=== PATIENT | male | born 1960 | race Caucasian/White ===

== ENCOUNTER 2024-02-01 19:56 | Inpatient (IN) ==
[2024-02-01 20:18] LABS: BASOPHILS # (AUTO) 0.1 10^3/uL (0.0-0.1); BASOPHILS % (AUTO) 0.9 %; EOSINOPHILS # (AUTO) 0.2 10^3/uL (0.0-0.7); EOSINOPHILS % (AUTO) 1.8 %; HCT - HEMATOCRIT 37.5 % (42.0-52.0); HGB - HEMOGLOBIN 12.5 g/dL (14.0-18.0); LYMPHOCYTES # (AUTO) 1.5 10^3/uL (1.5-3.5); LYMPHOCYTES % (AUTO) 15.2 %; MEAN CORPUSCULAR HGB CONC 33.3 g/dL (32.0-36.0); MEAN CORPUSCULAR VOLUME 89.9 fL (80.0-94.0); MEAN PLATELET VOLUME 9.7 fL (7.4-11.4); MONOCYTES # (AUTO) 0.9 10^3/uL (0.0-1.0); NEUTROPHILS # (AUTO) 7.3 10^3/uL (1.5-6.6); NEUTROPHILS % (AUTO) 72.7 %; PLT - PLATELET COUNT 459 10^3/uL (130-450); RED BLOOD COUNT 4.17 10^6/uL (4.70-6.10); RED CELL DISTRIBUTION WIDTH 14.3 % (12.0-15.0); WHITE BLOOD COUNT 10.1 x10^3/uL (4.8-10.8)
[2024-02-01 20:34] LABS: ALBUMIN 3.9 g/dL (3.2-5.5); ALBUMIN/GLOBULIN RATIO 1.4 (1.0-2.2); BILIRUBIN,TOTAL 0.3 mg/dL (0.2-1.0); CALCIUM 8.9 mg/dL (8.5-10.3); CREATININE 0.8 mg/dL (0.6-1.3); POTASSIUM 3.8 mmol/L (3.5-4.5); TOTAL PROTEIN 6.6 g/dL (6.4-8.9)
[2024-02-01] MEDS ORDERED: iohexoL-300 100 ML VIAL ONE (21:32)
[2024-02-01 21:51] LABS: BILIRUBIN,URINE NEGATIVE (NEGATIVE); GLUCOSE, URINE (UA) NEGATIVE (NEGATIVE); KETONES,URINE (UA) NEGATIVE (NEGATIVE); LEUKOCYTE ESTERASE, URINE NEGATIVE (NEGATIVE); NITRITE,URINE NEGATIVE (NEGATIVE); OCCULT BLOOD,URINE NEGATIVE (NEGATIVE); PH,URINE 7.5 PH (5.0-7.5); PROTEIN,URINE NEGATIVE (NEGATIVE); UROBILINOGEN,URINE 0.2 (NORMAL) E.U./dL (NORMAL)
[2024-02-01 21:53] LABS: CLARITY,URINE CLEAR (CLEAR)
--- NOTE | 2024-02-01 21:55 | ED Physician Documentation ---
PD HPI ABD PAIN Stated complaint Stated Complaint: ABD PX Chief complaint Chief Complaint: Abd Pain History obtained from History obtained from: Patient History of Present Illness Timing - onset: How many weeks ago (2) Timing - duration: Weeks (2) Timing - details: Gradual onset and Still present Quality: Cramping, Sharp and Pain Location: RLQ Radiation: No Chest or Lower back Improved by: Laying still Worsened by: Position and Palpation Associated symptoms: No Fever, Nausea, Vomiting, Diarrhea or Constipation Similar symptoms before: Diagnosis (cecal colitis ) Recently seen: Emergency Dept Additional information Additional information: 63-year-old Rl Collier is a resident of [facility] and he has come to [facility] today for evaluation of right lower quadrant abdominal pain. He had pain for about 2 weeks and he was seen in the emergency department 1 week ago and diagnosed with cecal colitis. He was thought to have potentially some early appendicitis or a possible mass in the cecum. He was placed onto Augmentin and he has not had significant change in his abdominal pain. He denies any blood in his stool he denies any constipation and he has been eating. He denies a fever. An order for Mr. Collier to get to the [place] he takes a private ferry from [facility] to [place] and then drives from [place] down to [facility]. This is mostly in all day process. Review of Systems Constitutional Denies: Fever, Chills, Weakness or Diaphoresis Ears, nose, mouth, and throat Denies: Neck pain Cardiovascular Denies: Irregular heart rate, chest pain or shortness of breath with exertion Respiratory Denies: Shortness of breath or Cough Gastrointestinal Reports: Abdominal pain; Denies: Abdominal distention, Nausea, Vomiting, Diarrhea or Constipation Genitourinary Denies: Painful urination or Flank pain Musculoskeletal Denies: Back pain or Neck pain Integumentary/Breast Denies: Rash or Itching Exam Exam He is returning today for further evaluation of persistent right lower quadran t abdominal pain 63-year-old male who appears comfortable but concerned laying on the gurney. Constitutional normal general appearance, no apparent distress, average body habitus and no limitations HENMT normocephalic and head/scalp atraumatic Eyes PERRL and EOMs intact bilaterally Neck/C-Spine visual inspection normal and trachea midline Chest inspection of chest normal Respiratory breath sounds equal bilaterally, normal respiratory effort, clear to auscultation bilaterally, no wheezes, no rales and no retractions Cardiovascular normal heart rate noted, regular rhythm noted and no murmur Gastrointestinal abdomen normal to inspection The abdomen is firm with firm lower abdominal muscles and there is no obvious referred peritoneal signs from examination deeply of the abdomen and other areas. He does have specific point tenderness to the right lower quadrant without guarding or rebound tenderness. Genitourinary no CVA tenderness Extremities normal to inspection, normal to palpation, no tenderness and full ROM Neurology therapist rrt II-XII intact and GCS normal Psychiatry mental status grossly normal Skin skin color normal and no rash Results Vitals Vitals: Vital Signs - 24 hr 02/01/24 20:00 02/01/24 20:15 02/01/24 21:56 Temperature 36.4 C L Temperature Source Temporal Artery Scan Pulse Rate 81 71 Respiratory Rate 16 18 Blood Pressure 127/81 132/83 H O2 Saturation 96 98 O2 Source Room air Room air Pain Intensity 6 4 4 02/01/24 23:00 02/02/24 01:00 Temperature Temperature Source Pulse Rate 91 H 82 Respiratory Rate 18 16 Blood Pressure 122/73 127/90 O2 Saturation 98 94 O2 Source Room air Room air Pain Intensity 6 7 Oxygen O2 Source Room air Labs Labs: Laboratory Tests 02/01/24 02/01/24 20:14 21:47 WBC 10.1 RBC 4.17 L Hgb 12.5 L Hct 37.5 L MCV 89.9 MCH 30.0 MCHC 33.3 RDW 14.3 Plt Count 459 H MPV 9.7 Neut # (Auto) 7.3 H Lymph # (Auto) 1.5 [place] # (Auto) 0.9 Eos # (Auto) 0.2 Baso # (Auto) 0.1 Absolute Nucleated RBC 0.00 Nucleated RBC % 0.0 Sodium 136 Potassium 3.8 Chloride 102 Carbon Dioxide 27 Anion Gap 7.0 BUN 8 Creatinine 0.8 Estimated GFR (MDRD) 98 Glucose 115 H Calcium 8.9 Total Bilirubin 0.3 AST 13 ALT 9 L Alkaline Phosphatase 51 Total Protein 6.6 Albumin 3.9 Globulin 2.7 Albumin/Globulin Ratio 1.4 Lipase 52 Urine Color LIGHT YELLOW Urine Clarity CLEAR Urine pH 7.5 Ur Specific [place] 1.010 Urine Protein NEGATIVE Urine Glucose (UA) NEGATIVE Urine Ketones NEGATIVE Urine Occult Blood NEGATIVE Urine Nitrite NEGATIVE Urine Bilirubin NEGATIVE Urine Urobilinogen 0.2 (NORMAL) Ur Leukocyte Esterase NEGATIVE Ur Microscopic Review NOT INDICATED Urine Culture Comments NOT INDICATED Rads (name of study) CT ab/pel : Relevant Findings:: Prelim report reviewed (Impression: There is a focus of prominently inflamed fat seen along the undersurface of the cecum, measuring up to 4.1 cm. Surrounding inflammatory change, with wall thickening of the cecum and the terminal ileum. The appendix is believed to be immediately adjacent to this focus. There is a focus) and See rad report PD Medical Decision Making ED course Reviewed Lab Results: CT ab/pel: Impression: There is a focus of prominently inflamed fat seen along the undersurface of the cecum, measuring up to 4.1 cm. Surrounding inflammatory change, with wall thickening of the cecum and the terminal ileum. The appendix is believed to be immediately adjacent to this focus. There is a focus of gas seen associated with this inflamed fat, which may be related to gas within the pelvic fluid versus a small bubble of extraluminal gas. A benign process with inflamed fat is possible perforated appendicitis is also possible an inflamed and perforated cecal neoplasm is also within the differential. Surgical consultation consultation may be helpful. Please consider additional short-term follow-up CT including oral contrast. We reviewed a complete blood count showing a normal white blood cell count hemoglobin and hematocrit were depressed at 12.7 and 37.7 which is a drop from the patient's most recent done 1 week ago of 14.4 and 43.7. Platelet count is elevated at 469,000 the differential today is unremarkable and improved from 7 days ago. Electrolytes are normal kidney function is normal liver function is normal urinalysis is unremarkable I interpret these laboratory studies to indicate some blood loss over the past week. Social Determinants of Health: This 63-year-old [place] [facility] with access to the [facility] through a private ferry. He is living in a house with electricity but no running water. ED course: Rl Ortiz presents to the emergency department 1 week after being diagnosed with a cecal colitis. He did take Augmentin and he is uncertain if he had any significant improvement in his pain. He has persistence of the pain and returns to the emergency department for further evaluation. Appendicitis was on the differential earlier today it looks like there is a problem with his cecum and the exact nature of this is unclear. There is leaning toward the possibility of a cecal mass. I examined the patient and did not believe he had an acute surgical abdomen but the nature of the CT examination and the changes in the CT examination indicated the possibility of a contained perforation and the patient was admitted to the hospital for observation and the surgeon was consulted by telephone. The surgeon recommended admission to the hospital he will see the patient in the morning and I spoke with the hospitalist regarding this patient's care. The hospitalist will put the patient in the hospital and place him on antibiotics. Consults Consults: Consulted (name) (Judy), Discussed case with and Request real estate listing consultant evaluate patient [facility] Medical History Medical History (Updated 02/02/24 @ 07:47 by Lloyd Kim MD) Carpal tunnel syndrome of right wrist Cancer prostate Social History Social History Smoking Status: Current every day smoker If you are a former smoker, when did you quit? (Date/Year): 30 Second hand tobacco smoke exposure: No Patient requests smoking cessation consult: No Initiate information on smoking cessation: No Smoking Status Details: Nicotine patch Relationship: Level: Independent Do you feel safe in your home environment?: Yes Suffered physical, verbal, emotional, or financial abuse?: No History of Abuse: No Substance Use: cannabis (any form) Are you sexually active?: No POLST Patient has POLST: No Discharge Plan Discharge Patient Disposition: ED Place in Observation Clinical Impression: Right lower quadrant abdominal pain Interventions: ED Admission Assessment Last Done: 02/02/24 02:02
[2024-02-01] MEDS: iohexoL-300 100 ML VIAL IVP ONE (22:06)
--- NOTE | 2024-02-01 23:00 | CT Report ---
PROCEDURE: CT Abdomen/Pelvis W INDICATIONS: RLQ pain CONTRAST: IV 100 ML OMNI 300 TECHNIQUE: After the administration of intravenous contrast, a CT scan of the abdomen and pelvis was performed. Images were recorded and evaluated at appropriate window settings. Reformats: coronal and sagittal. F or radiation dose reduction, the following was used: automated exposure control, adjustment of mA and /or kV according to patient size. COMPARISON: 01/26/2024 FINDINGS: Image quality: Diagnostic. Lower chest: Emphysematous changes can be seen, particularly involving the right lower lobe. Liver: No solid mass. Gallbladder: The gallbladder is decompressed at the time of this study. Biliary tree: No intrahepatic or extrahepatic dilation, accounting for age. Spleen: No splenomegaly. Pancreas: No pancreatic ductal dilation. Adrenals: No adrenal nodule. Kidneys and ureters: No hydronephrosis. No renal cystic lesion which requires follow up. No solid mas s. Stomach, bowel and peritoneum: Focal right lower quadrant inflammatory change can be seen. Just infer ior to the cecum, there is a focus of inflamed fat seen, as on series 2 image 90 and on series 4 imag e 49, measuring up to 3.1 cm. The appendix is believed to be immediately adjacent to this fluid colle ction. There is a focus of gas seen along this area of inflammatory change, as on series 2 image 88 a nd on series 4 image 45, which may be related to gas within the appendix lumen versus extraluminal ga s. There is thickening of the adjacent cecal wall. There is also mild wall thickening of the terminal ileum. No dilated loops of small bowel are seen. No significant free fluid can be seen. Lymph nodes: No central or retroperitoneal adenopathy. Vessels: No infrarenal aortic aneurysm. Patent portal vein. PELVIS Reproductive organs: Prostate region clips are seen. Bladder: No abnormal wall thickening, accounting for underdistention. Pelvic lymph nodes: No pelvic adenopathy by size criteria. Bones: No aggressive osseous abnormality. Mild levoconvex scoliotic curvature is seen. Age-appropri ate degenerative changes are seen. A right L4 pars defect is again seen. Other: No significant ventral or inguinal hernia. IMPRESSION: There is a focus of prominently inflamed fat seen along the undersurface of the cecum, measuring up t o 4.1 cm. Surrounding inflammatory change, with wall thickening of the cecum and the terminal ileum. The appendix is believed to be immediately adjacent to this focus. There is a focus of gas seen associated with this inflamed fat, which may be related to gas within th e pelvic fluid versus a small bubble of extraluminal gas. A benign process with inflamed fat is possible. Perforated appendicitis is also possible. An inflamed and perforated cecal neoplasm is also within the differential.. Surgical consultation may be helpful. Please consider additional short-term follow-up CT, including oral contrast. Note: Findings and recommendations discussed by telephone with Dr. Quintana at 10:54 PM [place] time on 02/01/2024. Additional findings: Emphysematous change Prostate region clips Levoconvex scoliotic curvature Right L4 pars defect Reviewed by: Julio Becker MD on 02/01/2024 9:59 PM AKANETA Approved by: Julio Becker MD on 02/01/2024 9:59 PM AKANETA Station ID: [id number]
[2024-02-02] MEDS: NICOTINE 21 MG PATCH TOP STA (01:30)
--- NOTE | 2024-02-02 01:56 | HISTORY & PHYSICAL EXAMINATION ---
Chief Complaint Chief Complaint Chief Complaint: abdominal pain History of Present Illness History of Present Illness HPI Comment/Other: 63 y old male presented to ER due to abdominal pain for one week. Pt came to ER a week ago and was diagnosed with colitis and discharged on Augmentin. C/O right lower quad pain, sharp, moderate in intensity. Denies nausea, vomiting, diarrhea, constipation, On presentation, pt was afberile Labs showed WBC 10.5 CT abdomen /pelvis showed finding of colitis, ileitis, possible perforation and cecal mass As per ER physician, he consulted surgeon contract administration specialist, who will evaluate patient in morning Pt is admitted due to colitis/ileitis with possible perforation and cecal mass PFSH Social History Social History Smoking Status: Current every day smoker Relationship: Do you feel safe in your home environment?: Yes Suffered physical, verbal, emotional, or financial abuse?: No History of Abuse: No Are you sexually active?: No POLST Patient has POLST: No Meds/Allgy Home Medications Ambulatory Orders Medication Instructions Recorded Confirmed amoxicillin 875 mg-potassium 1 ea PO Q12H #14 tabs 01/26/24 clavulanate 125 mg tablet docusate sodium 100 mg capsule 100 mg PO DAILY #15 caps 01/26/24 (Stool Softener) hydrocodone 5 mg-acetaminophen 325 1 ea PO Q6H PRN Pain #15 tabs 01/26/24 mg tablet meloxicam 7.5 mg tablet 7.5 mg PO BID 10 days #15 tabs 01/26/24 ondansetron 4 mg disintegrating 4 mg translingual Q6H PRN Nausea / 01/26/24 tablet Vomiting #10 tabs sildenafil 100 mg tablet 100 mg PO DAILY #5 tabs 01/26/24 Allergies Allergies Allergy/AdvReac Type Severity Reaction Status Date / Time No Known Drug Allergies Allergy Verified 02/01/24 20:07 Conclusion/Plan Problem List (1) Colitis, acute: Plan: A: Acute colitis/ileitis with possible perforation and cecal mass Abdominal pain Plan; Admit in tele NPO Follow cultures start NS @ 100 cc/h Start zosyn and flagyl iv Morphine iv prn zofran iv prn As per ER physician ( Dr Quintana), he consulted with surgeon contract administration specialist who will evalute patienty in morning DVT prophylaxic: SCD Full code Pt is admitted as inpatient as more than 2 midnight stay is expcted Lab Results 02/01/24 20:14 02/01/24 20:14 Review of Systems Status of ROS: 10 or more systems reviewed and unremarkable except as noted in history and below Exam Constitutional normal general appearance HENMT normocephalic Eyes PERRL Neck/C-Spine visual inspection normal Chest inspection of chest normal Respiratory breath sounds equal bilaterally Cardiovascular normal heart rate noted Gastrointestinal abdomen soft to palpation tender right lower quardrant Extremities normal to inspection Neurology no focal motor deficit noted Skin no rash
[2024-02-02] MEDS: metroNIDAZOLE 500 MG/100 ML 500 MG/100 ML BAG IV SCH ×3 (02:44→13:07)
[2024-02-02] MEDS: SODIUM CHLORIDE 0.9% 1,000 ML IV STA (02:44)
[2024-02-02] MEDS: MORPHINE 10 MG/ML VIAL IVP PRN (02:48)
[2024-02-02] MEDS: PIPERACILLIN/TAZOBACTAM 3.375 GM in SODIUM CHLORIDE 0.9% MINIBAG 100 ML IV ONE (04:05)
[2024-02-02 05:03] LABS: BASOPHILS # (AUTO) 0.1 10^3/uL (0.0-0.1); BASOPHILS % (AUTO) 1.3 %; EOSINOPHILS # (AUTO) 0.4 10^3/uL (0.0-0.7); EOSINOPHILS % (AUTO) 4.9 %; HCT - HEMATOCRIT 37.7 % (42.0-52.0); HGB - HEMOGLOBIN 12.7 g/dL (14.0-18.0); LYMPHOCYTES # (AUTO) 1.5 10^3/uL (1.5-3.5); LYMPHOCYTES % (AUTO) 17.1 %; MEAN CORPUSCULAR HEMOGLOBIN 30.2 pg (27.0-31.0); MEAN CORPUSCULAR HGB CONC 33.7 g/dL (32.0-36.0); MEAN CORPUSCULAR VOLUME 89.5 fL (80.0-94.0); MEAN PLATELET VOLUME 9.6 fL (7.4-11.4); MONOCYTES % (AUTO) 10.6 %; NEUTROPHILS # (AUTO) 5.9 10^3/uL (1.5-6.6); NEUTROPHILS % (AUTO) 65.8 %; PLT - PLATELET COUNT 469 10^3/uL (130-450); RED BLOOD COUNT 4.21 10^6/uL (4.70-6.10); RED CELL DISTRIBUTION WIDTH 14.6 % (12.0-15.0)
[2024-02-02 05:20] LABS: ALBUMIN 3.7 g/dL (3.2-5.5); ALBUMIN/GLOBULIN RATIO 1.6 (1.0-2.2); BILIRUBIN,TOTAL 0.4 mg/dL (0.2-1.0); CALCIUM 8.8 mg/dL (8.5-10.3); CREATININE 0.7 mg/dL (0.6-1.3)
[2024-02-02] MEDS: PIPERACILLIN/TAZOBACTAM 3.375 GM in SODIUM CHLORIDE 0.9% MINIBAG 100 ML IV SCH (06:58)
--- NOTE | 2024-02-02 07:36 | CONSULTATION NOTE ---
Referring Provider Name of Referring Provider:: Moe Consult Date: 02/02/24 Chief Complaint Chief Complaint Chief Complaint: Abdominal pain History of Present Illness Admitted From Admitted From:: ED History Obtained From Records Reviewed: Yes History obtained from: Patient History of Present Illness HPI Comment/Other: Rl is a 63 year old male who lives by himself on [facility] with his dog. 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 Two - three weeks ago he ate an egg sandwhich from his construction company and developed nausea and dry heaves. He thought the food may have been rancid. These symptoms resolved and he was fine for a few days then developed sharp, constant RLQ discomfort. He has a history of previous attacks of right flank pain which always resolved but this did not improve. He brought himself to the ED of this facility on 01/26/2024 and was found to have a leukocytosis and CT evidence of inflammation in the RLQ. The CT report indicated that the appendix was normal and gas filled. Rl was sent home on oral Augmentin but his symptoms of RLQ pain persisted and he returned to the ED late last night. Repeat of his CT scan now identifies continued pericecal inflammation with a focus of gas adjacent to the cecum which either indicates gas in the lumen of the appendix or perforated appendicitis. The patient does not present with infections symptoms such as fevers or chills. He has loose bowel motions which sometimes are associated with blood streaked on the stool. He was admitted to the Medicine service and I was asked to assist in his evaluation and management. Rl admits to drinking at least 8 beers a day. He denies alcohol withdrawal in the past. He lives alone but has a neighbor taking care of his dog. At the time of my evaluation this morning he is not septic and in no distress at all. His major complaint is bilateral hip pain after he walks on steep roofs. He still has discomfort in the RLQ but it is stable and not increasing [facility] Medical History Medical History (Updated 02/02/24 @ 07:47 by Lloyd Kim MD) Carpal tunnel syndrome of right wrist Cancer prostate Social History Social History Smoking Status: Current every day smoker If you are a former smoker, when did you quit? (Date/Year): 30 Second hand tobacco smoke exposure: No Patient requests smoking cessation consult: No Initiate information on smoking cessation: No Smoking Status Details: Nicotine patch Relationship: Level: Independent Do you feel safe in your home environment?: Yes Suffered physical, verbal, emotional, or financial abuse?: No History of Abuse: No Substance Use: cannabis (any form) Are you sexually active?: No POLST Patient has POLST: No POLST Status: Full Code Meds/Allgy Home Medications Ambulatory Orders Medication Instructions Recorded Confirmed amoxicillin 875 mg-potassium 1 ea PO Q12H #14 tabs 01/26/24 clavulanate 125 mg tablet docusate sodium 100 mg capsule 100 mg PO DAILY #15 caps 01/26/24 (Stool Softener) hydrocodone 5 mg-acetaminophen 325 1 ea PO Q6H PRN Pain #15 tabs 01/26/24 mg tablet meloxicam 7.5 mg tablet 7.5 mg PO BID 10 days #15 tabs 01/26/24 ondansetron 4 mg disintegrating 4 mg translingual Q6H PRN Nausea / 01/26/24 tablet Vomiting #10 tabs sildenafil 100 mg tablet 100 mg PO DAILY #5 tabs 01/26/24 Allergies Allergies Allergy/AdvReac Type Severity Reaction Status Date / Time No Known Drug Allergies Allergy Verified 02/01/24 20:07 Results Lab Results Lab results reviewed: Yes 02/02/24 04:35 02/02/24 04:35 Other Lab Results: Lab Results x24hrs 02/02/24 02/01/24 02/01/24 Range/Units 04:35 21:47 20:14 WBC 9.0 10.1 (4.8-10.8) x10^3/uL RBC 4.21 L 4.17 L (4.70-6.10) 10^6/uL Hgb 12.7 L 12.5 L (14.0-18.0) g/dL Hct 37.7 L 37.5 L (42.0-52.0) % MCV 89.5 89.9 (80.0-94.0) fL MCH 30.2 30.0 (27.0-31.0) pg MCHC 33.7 33.3 (32.0-36.0) g/dL RDW 14.6 14.3 (12.0-15.0) % Plt Count 469 H 459 H (130-450) 10^3/uL MPV 9.6 9.7 (7.4-11.4) fL Neut # (Auto) 5.9 7.3 H (1.5-6.6) 10^3/uL Lymph # (Auto) 1.5 1.5 (1.5-3.5) 10^3/uL [place] # (Auto) 1.0 0.9 (0.0-1.0) 10^3/uL Eos # (Auto) 0.4 0.2 (0.0-0.7) 10^3/uL Baso # (Auto) 0.1 0.1 (0.0-0.1) 10^3/uL Absolute Nucleated RBC 0.00 0.00 x10^3/uL Nucleated RBC % 0.0 0.0 /100WBC Sodium 137 136 (135-145) mmol/L Potassium 4.0 3.8 (3.5-4.5) mmol/L Chloride 105 102 (101-111) mmol/L Carbon Dioxide 25 27 (21-32) mmol/L Anion Gap 7.0 7.0 (6-13) BUN 8 8 (6-20) mg/dL Creatinine 0.7 0.8 (0.6-1.3) mg/dL Estimated GFR (MDRD) 114 98 (>89) Glucose 90 115 H (74-104) mg/dL Calcium 8.8 8.9 (8.5-10.3) mg/dL Total Bilirubin 0.4 0.3 (0.2-1.0) mg/dL AST 13 13 (10-42) IU/L ALT 9 L 9 L (10-60) IU/L Alkaline Phosphatase 47 51 (42-121) IU/L Total Protein 6.0 L 6.6 (6.4-8.9) g/dL Albumin 3.7 3.9 (3.2-5.5) g/dL Globulin 2.3 2.7 (2.1-4.2) g/dL Albumin/Globulin Ratio 1.6 1.4 (1.0-2.2) Lipase 52 (11-82) U/L Urine Color LIGHT YELLOW Urine Clarity CLEAR (CLEAR) Urine pH 7.5 (5.0-7.5) PH Ur Specific [place] 1.010 (1.002-1.030) Urine Protein NEGATIVE (NEGATIVE) mg/dL Urine Glucose (UA) NEGATIVE (NEGATIVE) mg/dL Urine Ketones NEGATIVE (NEGATIVE) mg/dL Urine Occult Blood NEGATIVE (NEGATIVE) Urine Nitrite NEGATIVE (NEGATIVE) Urine Bilirubin NEGATIVE (NEGATIVE) Urine Urobilinogen 0.2 (NORMAL) (NORMAL) E.U./dL Ur Leukocyte Esterase NEGATIVE (NEGATIVE) Ur Microscopic Review NOT INDICATED Urine Culture Comments NOT INDICATED Diagnostic Imaging Results Diagnostic Imaging Results: positive See rad report Diagnostic Imaging Results Comments: My review of the CT scans form 01/25 and 01/31 are suspicious for findings consistent with chronic appendicitis as the cause of his RLQ pain Conclusion and Plan Diagnosis Diagnosis: Chronic RLQ pain with CT findings consistent with wendi-cecal inflammation and contained air. This may be due to chronic appendicitis involving the tip of the appendix with air in the proximal portion or ruptured appendicitis with localized perforation. A mucocele is also a possibility. Cecal neoplasm is also in the differential diagnosis especially with the history of intermittent rectal bleeding. His last CS was 10 years ago (according to the patient and his adoptive status means we have no family history). The patient is not septic and there is time for additional studies to obtained a definitive diagnosis. Plan Plan: 1) Begin IV Ceftriaxone/Flagyl to treat the chronic pericecal inflammation 2) Bowel prep this morning 3) CS this afternoon Consent: BAKARI Shine has been counseled for the procedure, it's indications, risks, benefits and expected outcome as well as alternative therapies. We specifically discussed risks associated with anesthesia and insertion of the endoscope into the large intestine which includes bleeding and injury to the colon which may require surgical intervention. Rl understands, agrees, and consents to the proposed operative strategy and requests that we proceed with the procedure as outlined in our discussion. Lloyd Kim MD, FACS General Surgery Service Review of Systems See HPI Exam Constitutional normal general appearance and no apparent distress Thin male in [facility] normocephalic, head/scalp atraumatic, hearing grossly normal bilaterally, external ears normal and oropharynx normal Eyes PERRL, EOMs intact bilaterally, conjunctivae normal and no scleral icterus Neck/C-Spine visual inspection normal, trachea midline, cervical spine nontender and cervical full ROM noted Lymph no lymphadenopathy noted and no lymphedema noted Chest inspection of chest normal and palpation of chest normal Respiratory breath sounds equal bilaterally, normal respiratory effort, clear to auscultation bilaterally and no wheezes Cardiovascular normal heart rate noted, regular rhythm noted and no murmur Gastrointestinal abdomen normal to inspection, abdomen soft to palpation, nontender to percussion, nondistended, normoactive bowel sounds and no hepatosplenomegaly RLQ involuntary guarding and tenderness to palpation Genitourinary no CVA tenderness Extremities normal to inspection, normal to palpation, no tenderness, full ROM and no deformity Neurology rose grading supervisor II-XII intact and no focal motor deficit noted Psychiatry mental status grossly normal Skin skin color normal, no rash, no ecchymosis noted and no wounds
[2024-02-02] MEDS ORDERED: LORazepam 2 MG/ML VIAL IVP PRN (08:27)
[2024-02-02] MEDS ORDERED: HYDROcod/ACET 5/325 Prepack 4 PO PRN (08:31)
[2024-02-02] MEDS: SODIUM/POTASSIUM/MAG SULFATES 354 ML PREP KIT PO SCH (08:31)
[2024-02-02] MEDS: cefTRIAXone 1 GM in SODIUM CHLORIDE 0.9% MINIBAG 100 ML IV SCH (08:42)
[2024-02-02 08:47] LABS: BASOPHILS # (AUTO) 0.1 10^3/uL (0.0-0.1); BASOPHILS % (AUTO) 1.3 %; EOSINOPHILS # (AUTO) 0.4 10^3/uL (0.0-0.7); HCT - HEMATOCRIT 40.7 % (42.0-52.0); HGB - HEMOGLOBIN 13.3 g/dL (14.0-18.0); LYMPHOCYTES # (AUTO) 1.1 10^3/uL (1.5-3.5); LYMPHOCYTES % (AUTO) 13.2 %; MEAN CORPUSCULAR HEMOGLOBIN 29.5 pg (27.0-31.0); MEAN CORPUSCULAR HGB CONC 32.7 g/dL (32.0-36.0); MEAN CORPUSCULAR VOLUME 90.2 fL (80.0-94.0); MEAN PLATELET VOLUME 9.6 fL (7.4-11.4); MONOCYTES # (AUTO) 0.9 10^3/uL (0.0-1.0); MONOCYTES % (AUTO) 10.3 %; NEUTROPHILS # (AUTO) 5.9 10^3/uL (1.5-6.6); PLT - PLATELET COUNT 476 10^3/uL (130-450); RED BLOOD COUNT 4.51 10^6/uL (4.70-6.10); RED CELL DISTRIBUTION WIDTH 14.6 % (12.0-15.0); WHITE BLOOD COUNT 8.4 x10^3/uL (4.8-10.8)
[2024-02-02 08:55] LABS: INR 1.2 (0.8-1.2); PT - PROTHROMBIN TIME 12.5 secs (9.9-12.6)
[2024-02-02 09:07] LABS: ALBUMIN 3.7 g/dL (3.2-5.5); ALBUMIN/GLOBULIN RATIO 1.4 (1.0-2.2); BILIRUBIN,TOTAL 0.6 mg/dL (0.2-1.0); CALCIUM 8.8 mg/dL (8.5-10.3); CREATININE 0.7 mg/dL (0.6-1.3); POTASSIUM 3.8 mmol/L (3.5-4.5); TOTAL PROTEIN 6.4 g/dL (6.4-8.9)
[2024-02-02] MEDS: PRENATAL VITAMIN TABLET PO SCH (10:27)
[2024-02-02] MEDS: SODIUM CHLORIDE FLUSH 0.9% 10 ML SYRINGE IVP SCH (10:27)
[2024-02-02] MEDS: MELOXICAM 7.5 MG TABLET PO SCH (10:27)
[2024-02-02] MEDS: THIAMINE 100 MG TABLET PO SCH (10:27)
--- NOTE | 2024-02-02 12:07 | PHARMACY PROGRESS NOTE ---
Best Possible Medication History Admit Date and Time: 02/02/24 193677 Processed by: Pharmacy Medication History completed: Yes Patient Interview: Completed Secondary Source(s): Insurance records [facility] Statement: Pt interview, pt states takes no home medications As the person ultimately responsible for medication therapy, providers are able to order a medication from an existing home medication list in [facility] via the "Reconcile Routine" prior to Confirmation of that medication by whanau support worker. Such practice is discouraged except when the physician, in their clinical judgment, deems that a medical need exists for a medication without regard to previous use.
[2024-02-02] MEDS: chlordiazePOXIDE 5 MG CAPSULE PO SCH (13:07)
[2024-02-02] MEDS: SODIUM CHLORIDE 0.9% 1,000 ML IV SCH (14:12)
[2024-02-02] MEDS ORDERED: SALINE ENEMA 133 ML BOTTLE RC SCH ×2 (14:45→15:00)
--- NOTE | 2024-02-02 14:52 | ANESTHESIA PROCEDURE NOTE ---
Pre-Anesthesia VS, & Labs Diagnosis Diagnosis: Diagnosis Chronic RLQ pain with CT findings consistent with wendi-cecal inflammation and contained air. This may be due to chronic appendicitis involving the tip of the appendix with air in the proximal portion or ruptured appendicitis with localized perforation. A mucocele is also a possibility. Cecal neoplasm is also in the differential diagnosis especially with the history of intermittent rectal bleeding. His last CS was 10 years ago (according to the patient and his adoptive status means we have no family history). The patient is not septic and there is time for additional studies to obtained a definitive diagnosis. ACUTE COLITIS Procedure Procedure: COLITIS Vitals Vital Signs: Temp Pulse Resp BP Pulse Ox 36.6 C 76 16 116/65 96 02/02/24 12:23 02/02/24 12:23 02/02/24 12:23 02/02/24 12:23 02/02/24 12:23 NPO Last Fluid Intake: PREP ABOUT 1300 Last Food Intake: >8HR Lab Results Current Lab Results: Laboratory Tests 02/02/24 08:41: WBC 8.4, RBC 4.51 L, Hgb 13.3 L, Hct 40.7 L, MCV 90.2, MCH 29.5, MCHC 32.7, RDW 14.6, Plt Count 476 H, MPV 9.6, Neut # (Auto) 5.9, Lymph # (Auto) 1.1 L, [place] # (Auto) 0.9, Eos # (Auto) 0.4, Baso # (Auto) 0.1, Absolute Nucleated RBC 0.00, Nucleated RBC % 0.0, PT 12.5, INR 1.2, Sodium 137, Potassium 3.8, Chloride 106, Carbon Dioxide 25, Anion Gap 6.0, BUN 8, Creatinine 0.7, Estimated GFR (MDRD) 114, Glucose 93, Calcium 8.8, Total Bilirubin 0.6, AST 13, ALT 9 L, Alkaline Phosphatase 50, Total Protein 6.4, Albumin 3.7, Globulin 2.7, Albumin/Globulin Ratio 1.4 02/02/24 04:35: WBC 9.0, RBC 4.21 L, Hgb 12.7 L, Hct 37.7 L, MCV 89.5, MCH 30.2, MCHC 33.7, RDW 14.6, Plt Count 469 H, MPV 9.6, Neut # (Auto) 5.9, Lymph # (Auto) 1.5, [place] # (Auto) 1.0, Eos # (Auto) 0.4, Baso # (Auto) 0.1, Absolute Nucleated RBC 0.00, Nucleated RBC % 0.0, Sodium 137, Potassium 4.0, Chloride 105, Carbon Dioxide 25, Anion Gap 7.0, BUN 8, Creatinine 0.7, Estimated GFR (MDRD) 114, Glucose 90, Calcium 8.8, Total Bilirubin 0.4, AST 13, ALT 9 L, Alkaline Phosphatase 47, Total Protein 6.0 L, Albumin 3.7, Globulin 2.3, Albumin/Globulin Ratio 1.6 02/01/24 20:14: WBC 10.1, RBC 4.17 L, Hgb 12.5 L, Hct 37.5 L, MCV 89.9, MCH 30.0, MCHC 33.3, RDW 14.3, Plt Count 459 H, MPV 9.7, Neut # (Auto) 7.3 H, Lymph # (Auto) 1.5, [place] # (Auto) 0.9, Eos # (Auto) 0.2, Baso # (Auto) 0.1, Absolute Nucleated RBC 0.00, Nucleated RBC % 0.0, Sodium 136, Potassium 3.8, Chloride 102, Carbon Dioxide 27, Anion Gap 7.0, BUN 8, Creatinine 0.8, Estimated GFR (MDRD) 98, Glucose 115 H, Calcium 8.9, Total Bilirubin 0.3, AST 13, ALT 9 L, Alkaline Phosphatase 51, Total Protein 6.6, Albumin 3.9, Globulin 2.7, Albumin/Globulin Ratio 1.4, Lipase 52 Lab results reviewed: Yes 02/02/24 08:41 02/02/24 08:41 Meds/Allgy Home Medications Ambulatory Orders Medication Instructions Recorded Confirmed amoxicillin 875 mg-potassium 1 ea PO Q12H #14 tabs 01/26/24 clavulanate 125 mg tablet docusate sodium 100 mg capsule 100 mg PO DAILY #15 caps 01/26/24 (Stool Softener) hydrocodone 5 mg-acetaminophen 325 1 ea PO Q6H PRN Pain #15 tabs 01/26/24 mg tablet meloxicam 7.5 mg tablet 7.5 mg PO BID 10 days #15 tabs 01/26/24 ondansetron 4 mg disintegrating 4 mg translingual Q6H PRN Nausea / 01/26/24 tablet Vomiting #10 tabs sildenafil 100 mg tablet 100 mg PO DAILY #5 tabs 01/26/24 Allergies Allergies Allergy/AdvReac Type Severity Reaction Status Date / Time No Known Drug Allergies Allergy Verified 02/01/24 20:07 PFS Medical History Medical History (Updated 02/02/24 @ 07:47 by Lloyd Kim MD) Carpal tunnel syndrome of right wrist Cancer prostate Surgical History Surgical History (Updated 02/02/24 @ 14:47 by Tyshawn Alba CRNA) Hx of carpal tunnel repair H/O colonoscopy Social History Social History (Updated 02/02/24 @ 14:44 by Tyshawn Alba CRNA) Smoking Status: Current every day smoker If you are a former smoker, when did you quit? (Date/Year): 30 Second hand tobacco smoke exposure: No Patient requests smoking cessation consult: No Initiate information on smoking cessation: No Relationship: Level: Independent Do you feel safe in your home environment?: Yes Suffered physical, verbal, emotional, or financial abuse?: No History of Abuse: No ETOH Use: Beer Frequency: Daily Number of Amount/day: 8 Substance Use: cannabis (any form) Are you sexually active?: No POLST Patient has POLST: No POLST Status: Full Code Anesthesia Exam (Expanded) Exam General: No acute distress Dental: WNL Mouth Openin Fingerbreadth Neck Mobility: Normal Mallampati classification: II Thyromental Distance: 4-6 cm Respiratory: Lungs clear Cardiovascular: Regular rate (DENIES CP/SOB/ AL/ ARHYTHMIA) Plan Plan Anesthesia Type: Total IV Consent for Procedure(s) Verified and Reviewed: Yes Code Status: Attempt Resuscitation ASA Classification ASA classification: 2-Mild systemic disease Is this case an emergency?: Yes
[2024-02-02] MEDS ORDERED: MIDAZOLAM 2 MG/2 ML VIAL ONE (15:02)
--- NOTE | 2024-02-02 15:50 | PROVIDER PROGRESS NOTE ---
Progress Note Progress Note Progress Note: General Surgery Brief Procedure Note - See Provation for details Procedure Name: Limited colonoscopy Anesthesia: Monitored sedation Procedure findings: The bowel prep was good without solid fecal material or liquid bile. Using an adult colonoscope, I was able to reach the 28 cm sarah but several tight angulations of the pelvic colon prevented safe passage of the endoscope beyond this area despite multiple scope maneuvers. I asked for and then used a pediatric endoscope but was again thwarted from passage of the endoscope into the left colon due to the multiple angulations of the pelvic colon. Further attempts were fraught with the very real risk of perforation, therefore I aborted any further attempts to advance the endoscope. The colonic mucosa from the 28 cm sarah to the anus was normal except for a few diverticula in the sigmoid. Retroflex view of the anus was remarkable for several large and inflamed internal hemorrhoids. After the procedure and after emerging from sedation, the patient exhibited no clinical evidence of colonic injury. Assessment: Unable to complete the colon exam for the above reasons therefore can not definitively exclude the presence of a cecal neoplasm. However, the clinical presentation of RLQ pain, tenderness, leukocytosis, and wendi-cecal inflammation on 01/26/24 is most consistent with appendicitis. If that was the cause of his initial symptoms, it is likely that he has simply failed out-pat ient management with the presrcibed oral antibiotics because most protocols recommend 2-3 days of IV antibiotics before starting oral medication. Recommendation: 1) Start a regular diet but keep NPO after midnight in case he goes to surgery tomorrow 2) Continue IV Ceftriaxone/Metronidazole 3) I will discuss his case with tomorrow's on-call surgeon (Dr. Song). Either we can continue non-operative management with several days of IV antibiotics followed by 7-10 days of oral medication with interval appendectomy as needed or he can undergo diagnostic laparoscopy with the intent to remove the appendix during this admission. Lloyd Kim MD, [facility] General Surgery Service
--- NOTE | 2024-02-02 15:55 | ANESTHESIA POST OP EVALUATION ---
Anesthesia Post Eval Post Anesthesia Eval Vitals: Last Vital Signs Temp 36.6 C 02/02/24 12:23 Pulse 76 02/02/24 12:23 Resp 16 02/02/24 12:23 BP 116/65 02/02/24 12:23 Pulse Ox 96 02/02/24 12:23 CV Function Including HR & BP: Stable Pain Control: Satisfactory Nausea & Vomiting: Negative Mental Status: Baseline Respiratory Status: Airway Patent Hydration Status: Satisfactory Anesthesia Complications: None
[2024-02-02] MEDS: HYDROcod/ACETAM 5/325 MG TABLET PO PRN (20:22)
[2024-02-03 05:55] LABS: BASOPHILS # (AUTO) 0.1 10^3/uL (0.0-0.1); BASOPHILS % (AUTO) 1.4 %; EOSINOPHILS # (AUTO) 0.4 10^3/uL (0.0-0.7); EOSINOPHILS % (AUTO) 5.1 %; HCT - HEMATOCRIT 36.1 % (42.0-52.0); LYMPHOCYTES # (AUTO) 1.5 10^3/uL (1.5-3.5); LYMPHOCYTES % (AUTO) 16.8 %; MEAN CORPUSCULAR HEMOGLOBIN 30.2 pg (27.0-31.0); MEAN CORPUSCULAR HGB CONC 33.2 g/dL (32.0-36.0); MEAN CORPUSCULAR VOLUME 90.9 fL (80.0-94.0); MEAN PLATELET VOLUME 9.7 fL (7.4-11.4); MONOCYTES # (AUTO) 0.8 10^3/uL (0.0-1.0); MONOCYTES % (AUTO) 9.2 %; NEUTROPHILS # (AUTO) 5.8 10^3/uL (1.5-6.6); NEUTROPHILS % (AUTO) 67.3 %; PLT - PLATELET COUNT 449 10^3/uL (130-450); RED BLOOD COUNT 3.97 10^6/uL (4.70-6.10); RED CELL DISTRIBUTION WIDTH 14.8 % (12.0-15.0); WHITE BLOOD COUNT 8.7 x10^3/uL (4.8-10.8)
[2024-02-03 06:08] LABS: CALCIUM 8.3 mg/dL (8.5-10.3); CREATININE 0.6 mg/dL (0.6-1.3); POTASSIUM 3.8 mmol/L (3.5-4.5)
[2024-02-03] MEDS ORDERED: oxyCODONE 5 MG TABLET PO PRN (08:26)
[2024-02-03] MEDS ORDERED: IBUPROFEN 400 MG TABLET PO PRN (08:28)
[2024-02-03] MEDS: ACETAMINOPHEN 500 MG TABLET PO SCH (08:44)
--- NOTE | 2024-02-03 08:55 | PROVIDER PROGRESS NOTE ---
Subjective General Admit Date: 02/02/24 Other Other Information/Narrative: Patient states pain is somewhat controlled, but about the same as when he came in this morning. Sharp and located in RLQ. No n/v. He was able to tolerate a regular diet yesterday afternoon without worsening pain. No f/c. No BM since scope. Impression/Plan Problem List Problem List: 63 y/o M with: 1. RLQ pain - CT demonstrates inflammation of cecum and pericolonic mesentery - CE unsuccesful yesterday - non toxic appearing, leukocytosis has resolved - continue IV abx today, transition to PO abx when pain improved - recommend increase multimodal pain regimen (schedule tylenol and ibuoprofen, prn oxycodone and IV narcotic) - plan for non operative management at this time, with suspicion that overall picture may be chronic vs ruputured appendicitis. If we can control pain and resolve symptoms with IV abx, plan to discharge on PO abx and f/u in clinic with repeat imaging in 2-4 weeks. Likely interval appendectomy. - If patient does not improve, would consider diagnostic laparoscopy with appendectomy and likely R hemicolectomy during this hospital stay. I discussed with the patient and primary team that non operative management at this time is likely to position the patient for a less invasive and less drastic surgery with improved recovery. - Patient lives remotely, so plan to ensure he is doing quite well on planned home medication regimen prior to discharge 2. alcohol abuse - as per primary team Surgery will continue to follow. Exam Exam Gen: NAD, alert and oriented CV: RRR Pulm: non labored, on RA Abd: soft with moderate ttp in RLQ, - Rovsing, no rebound, otherwise non tender, no distension
--- NOTE | 2024-02-03 08:58 | PROVIDER PROGRESS NOTE ---
Subjective Prog Note Date Prog Note Date: 02/03/24 Subjective Pt reports feeling: Improved Subjective: Pain improved. States his pain is at most a 4 and is worse at night. He reported more pain to the surgeon who rounded this morning Current Medications Current Medications Current Medications: Current Medications Generic Name Dose Route Start Last Admin Trade Name Anup PRN Reason Stop Dose Admin Acetaminophen 1,000 mg 02/03/24 09:00 02/03/24 08:44 Acetaminophen 500 Mg Tablet PO 1,000 mg Q8H STEFANIE Administration Chlordiazepoxide HCl 5 mg 02/02/24 12:00 02/03/24 05:37 Chlordiazepoxide 5 Mg Capsule PO 5 mg Q6HR STEFANIE Administration Ceftriaxone Sodium 1 gm/ 100 mls @ 200 mls/hr 02/02/24 09:00 02/03/24 08:46 Sodium Chloride IV 02/07/24 08:59 200 mls/hr DAILY STEFANIE Administration Metronidazole 500 mg in 100 mls @ 100 mls/hr 02/02/24 14:00 02/03/24 06:34 Flagyl 500 Mg/100 Ml IV 02/07/24 05:59 Infused Q8HR STEFANIE Infusion Sodium Chloride 1,000 mls @ 125 mls/hr 02/02/24 14:00 02/03/24 08:47 Normal Saline 0.9% IV 02/03/24 13:59 0 mls/hr .Q8H STEFANIE Infusion Ibuprofen 400 mg 02/03/24 08:28 Ibuprofen 400 Mg Tablet PO Q6HR PRN Moderate Pain (Level 4-6) Lorazepam 1 mg 02/02/24 08:27 Lorazepam 2 Mg/Ml Vial IVP Q30M PRN CIWA >8 Protocol Morphine Sulfate 2 mg 02/02/24 01:37 02/02/24 02:48 Morphine 10 Mg/Ml Vial IVP 2 mg Q6H PRN Administration Abdominal Pain Oxycodone HCl 5 mg 02/03/24 08:26 Oxycodone 5 Mg Tablet PO Q4HR PRN Moderate Pain (Level 4-6) Multivit/Folic Acid/Iron 1 tab 02/02/24 09:00 02/03/24 08:45 Vitamin Tablet PO 1 tab DAILY STEFANIE Administration Sodium Chloride 10 ml 02/02/24 09:00 02/03/24 08:45 Sodium Chloride Flush 0.9% 10 Ml Syringe IVP Not Given 0100,0900,1700 STEFANIE Thiamine HCl 100 mg 02/02/24 09:00 02/03/24 08:45 Thiamine 100 Mg Tablet PO 100 mg DAILY STEFANIE Administration Objective Vital Signs/Intake & Output Reviewed Vital Signs: Yes Vital Signs: Vital Signs x48h Temp Pulse Pulse Resp BP Pulse Ox 02/03/24 08:10 36.6 C 77 17 121/78 97 02/03/24 05:13 36.7 C 68 14 132/77 H 96 Intake & Output: Intake & Output 02/01/24 02/02/24 02/03/24 02/04/24 05:59 05:59 05:59 05:59 Intake Total 200 / 200 4112 / 4112 552 / 552 Output Total 225 / 225 650 / 650 0 / 0 Balance -25 / -25 3462 / 3462 552 / 552 Weight (kg) 62.5 kg Objective General Appearance: positive No acute distress Respiratory: positive Chest non-tender and Breath sounds nml Cardiovascular: positive Regular rate & rhythm Abdomen: positive Nml bowel sounds and Tenderness (To deep palpation) Skin: positive Color nml Extremities: positive Non-tender and No pedal edema Neurologic/Psychiatric: positive Oriented x3 Lab Results 02/03/24 05:35 02/03/24 05:35 Other Labs: Lab Results x24hrs 02/03/24 02/02/24 Range/Units 05:35 08:41 WBC 8.7 (4.8-10.8) x10^3/uL RBC 3.97 L (4.70-6.10) 10^6/uL Hgb 12.0 L (14.0-18.0) g/dL Hct 36.1 L (42.0-52.0) % MCV 90.9 (80.0-94.0) fL MCH 30.2 (27.0-31.0) pg MCHC 33.2 (32.0-36.0) g/dL RDW 14.8 (12.0-15.0) % Plt Count 449 (130-450) 10^3/uL MPV 9.7 (7.4-11.4) fL Neut # (Auto) 5.8 (1.5-6.6) 10^3/uL Lymph # (Auto) 1.5 (1.5-3.5) 10^3/uL [place] # (Auto) 0.8 (0.0-1.0) 10^3/uL Eos # (Auto) 0.4 (0.0-0.7) 10^3/uL Baso # (Auto) 0.1 (0.0-0.1) 10^3/uL Absolute Nucleated RBC 0.00 x10^3/uL Nucleated RBC % 0.0 /100WBC PT 12.5 (9.9-12.6) secs INR 1.2 (0.8-1.2) Sodium 139 137 (135-145) mmol/L Potassium 3.8 3.8 (3.5-4.5) mmol/L Chloride 111 106 (101-111) mmol/L Carbon Dioxide 23 25 (21-32) mmol/L Anion Gap 5.0 L 6.0 (6-13) BUN 14 8 (6-20) mg/dL Creatinine 0.6 0.7 (0.6-1.3) mg/dL Estimated GFR (MDRD) 137 114 (>89) Glucose 97 93 (74-104) mg/dL Calcium 8.3 L 8.8 (8.5-10.3) mg/dL Total Bilirubin 0.6 (0.2-1.0) mg/dL AST 13 (10-42) IU/L ALT 9 L (10-60) IU/L Alkaline Phosphatase 50 (42-121) IU/L Total Protein 6.4 (6.4-8.9) g/dL Albumin 3.7 (3.2-5.5) g/dL Globulin 2.7 (2.1-4.2) g/dL Albumin/Globulin Ratio 1.4 (1.0-2.2) Diagnostic Imaging Diagnostic Imaging Results: positive Final report reviewed Diagnostic Imaging Comments: CT abdomen/pelvis ABX Reporting Has patient been on IV antibiotics over the past 48 hours?: Yes Assessment/Plan Problem List (1) Colitis, acute: Impression: CT abdomen/pelvis with colitis, ileitis, prior possible perforation and cecal mass Per surgery, concern for chronic appendicitis picture 02/02/2024 underwent colonoscopy which was nondiagnostic Continue antibiotics today, earliest possible discharge tomorrow Rocephin/Flagyl per surgery Adjusting pain management regimen to include scheduled Tylenol, change Mobic to Motrin, change [place] to oxycodone 5 mg every 4 hours as needed IVF Clear liquid diet per surgery (2) Alcohol abuse: Impression: Reports drinking 8 beers a day CIWA protocol, vitamin support, as needed Ativan Librium 5 mg p.o. (3) Anemia: Impression: Hemoglobin 12 today, down from 13.3 CBC in a.m. Consider anemia workup if continues to worsen
--- NOTE | 2024-02-03 09:10 | PROVIDER PROGRESS NOTE ---
Subjective General Admit Date: 02/02/24
[2024-02-03] MEDS ORDERED: iohexoL-300 100 ML VIAL ONE (15:10)
[2024-02-03 15:31] LABS: HCT - HEMATOCRIT 37.4 % (42.0-52.0); HGB - HEMOGLOBIN 12.1 g/dL (14.0-18.0)
--- NOTE | 2024-02-03 15:56 | CT Report ---
PROCEDURE: CT Angio Abdomen/Pelvis INDICATIONS: Lower GI bleed CONTRAST: 100 mL Omnipaque 300 TECHNIQUE: After the administration of intravenous contrast, 2.5 mm thick sections acquired from the diaphragm t o the symphysis. 10 mm maximum-intensity projection (MIP) reformats were then acquired. For radiati on dose reduction, the following was used: automated exposure control, adjustment of mA and/or kV ac cording to patient size. COMPARISON: 02/01/2024 FINDINGS: Image quality: Excellent. VESSELS: Aorta: Mild atherosclerotic disease without ectasia. Mesenteric arteries: Celiac trunk, superior and inferior mesenteric arteries appear patent. Right pelvic arteries: Moderate atherosclerotic disease without hemodynamically significant stenosis . Left pelvic arteries: Moderate atherosclerotic disease without hemodynamically significant stenosis. CHEST: Lung bases and heart: Bibasilar atelectasis. ABDOMEN: Liver: No solid mass. Gallbladder and biliary tree: No radiopaque stones or wall thickening. No biliary dilation. Spleen: No splenomegaly. Pancreas: No pancreatic ductal dilation. Adrenals: No adrenal nodule. Kidneys and ureters: No hydronephrosis. No renal cystic lesion which requires follow up. No solid mas s. Bowel and peritoneum: Persistent abnormal thickening of the cecum, with pericolic fat stranding. Trac e free fluid in the pelvis. Diverticulosis without evidence of diverticulitis. Lymph nodes: No central or retroperitoneal adenopathy. PELVIS Reproductive organs: Unremarkable. Bladder: No abnormal wall thickening, accounting for underdistension. Pelvic lymph nodes: No pelvic adenopathy by size criteria. Bones: No aggressive osseous abnormality. Degenerative changes, predominantly of the lumbar spine. Other: No significant ventral or inguinal hernia. IMPRESSION: No evidence of active GI hemorrhage. Persistent inflammatory changes of the cecum and underlying mass can't be excluded. Outpatient colono scopy is recommended. Colonic diverticulosis without evidence of diverticulitis. Reviewed by: Sal Vázquez MD on 02/03/2024 3:55 PM PDT Approved by: Sal Vázquez MD on 02/03/2024 3:55 PM PDT Station ID: [id number]
[2024-02-03] MEDS: metroNIDAZOLE 250 MG TABLET PO SCH (16:42)
[2024-02-03] MEDS: CIPROFLOXACIN 250 MG TABLET PO SCH (21:43)
[2024-02-04 05:24] VITALS: O2SAT 96
[2024-02-04 06:01] LABS: BASOPHILS # (AUTO) 0.1 10^3/uL (0.0-0.1); BASOPHILS % (AUTO) 1.2 %; EOSINOPHILS # (AUTO) 0.5 10^3/uL (0.0-0.7); EOSINOPHILS % (AUTO) 5.5 %; HCT - HEMATOCRIT 37.1 % (42.0-52.0); HGB - HEMOGLOBIN 12.1 g/dL (14.0-18.0); LYMPHOCYTES # (AUTO) 1.6 10^3/uL (1.5-3.5); LYMPHOCYTES % (AUTO) 17.9 %; MEAN CORPUSCULAR HEMOGLOBIN 29.7 pg (27.0-31.0); MEAN CORPUSCULAR HGB CONC 32.6 g/dL (32.0-36.0); MEAN CORPUSCULAR VOLUME 91.2 fL (80.0-94.0); MEAN PLATELET VOLUME 10.5 fL (7.4-11.4); MONOCYTES # (AUTO) 0.8 10^3/uL (0.0-1.0); MONOCYTES % (AUTO) 8.8 %; NEUTROPHILS % (AUTO) 66.3 %; PLT - PLATELET COUNT 437 10^3/uL (130-450); RED BLOOD COUNT 4.07 10^6/uL (4.70-6.10); RED CELL DISTRIBUTION WIDTH 14.6 % (12.0-15.0); WHITE BLOOD COUNT 9.1 x10^3/uL (4.8-10.8)
[2024-02-04 06:24] LABS: CALCIUM 8.5 mg/dL (8.5-10.3); CREATININE 0.6 mg/dL (0.6-1.3); POTASSIUM 4.5 mmol/L (3.5-4.5)
--- NOTE | 2024-02-04 07:07 | PROVIDER PROGRESS NOTE ---
Subjective General Admit Date: 02/02/24 Other Other Information/Narrative: Patient denies pain this AM. Tolerating regular diet. No acute issues overnight. No f/c. Patient would like to go home. Impression/Plan Problem List Problem List: 63 y/o M with: 1. RLQ pain - CT demonstrates inflammation of cecum and pericolonic mesentery - CE unsuccessful 02/02 - non toxic appearing, leukocytosis has resolved - pain resolved, transitioned to PO abx yesterday afternoon and is tolerating them well - recommend continued multimodal pain regimen (schedule tylenol and ibuoprofen) on discharge - plan for non operative management at this time, with suspicion that overall picture may be chronic vs ruputured appendicitis vs segmental colitis. Ok from surgery standpoint to discharge on PO abx today and f/u in clinic with repeat imaging in 2-4 weeks. Likely interval appendectomy. I have discussed this plan with the patient and primary team - Patient lives remotely, on [facility] and does not have running water at home (he uses a well) 2. alcohol use disorder - CIWA ordered, no meds needed - as per primary team Exam Exam Gen: NAD, alert and oriented CV: RRR Pulm: non labored, on RA Abd: soft, NT, ND, no r/g. Specifically not tender in RLQ Ext: no c/c/e
[2024-02-04] MEDS: NICOTINE 7 MG PATCH TOP SCH (08:14)
--- NOTE | 2024-02-04 14:34 | Discharge Summary ---
Discharge Plan Discharge Plan Problem Reviewed?: Yes Discharge Instructions Diet: Regular (with low fiber) Activity Restrictions: No Restrictions Shower Restrictions: No Driving Restrictions: No Plan of Treatment: 1. The surgeon who consulted on you, Dr Song, would like to see you in 2 weeks. We want to keep an eye on that right lower quadrant (called the cecum) and she wants a repeat CAT scan done of that area on the same day she sees you. Again, we are trying to figure out if you have inflammatory bowel disease or a tumor or just simple colitis. The only way were going to be able to make the diagnosis is for you to undergo a possible colonoscopy once all the inflammation is gone down. The colonoscopy will not happen for 4 to 6 weeks after the CAT scan done 2 weeks from now. BETTIE Madison will be putting in the order for the CT, then it will be scheduled by the echocardiography radiology technologist Corrina Castillo [phone], Ext [phone], and Dr. Song's office will coordinate with Ms Castillo for that. 2. Please take antibiotics by mouth until February 13. The prescriptions are called into [facility] pharmacy in [place]. 1 will be Ciprofloxacin 250 mg, 2 tablets twice a day. The second 1 will be Flagyl 500 mg 3 times a day. Sometimes antibiotics give you diarrhea because they disrupt the normal balance and your bowel. Take an [id number] probiotic twice a day if that happens. 3. Because you have low so remotely, we are recommending that you stay nearby for the next week just in case. You state you go to be staying in [place] for the next week. But remember, you need to return in 2 weeks to see the surgeon and get the CAT scan. Please make sure you have a valid phone number for the home health scheduler to call you and make that appointment. 4. Part of the failure to heal quickly from this could be alcohol abuse. We are asking you not to drink any alcohol for the next few months. Please take a multivitamin that is a vitamin once a day. That will help supplement any nutritional deficit you may have from alcohol abuse. Assessment: Patient is a thin, alert individual who is oriented person, place, time and situation No Smoking
--- NOTE | 2024-02-04 14:57 | Discharge Summary ---
"Discharge Summary Admit Date: 02/02/24 Discharge Date: 02/04/24 Discharging Provider: Dione Torres MD Primary Care Provider: no PCP, sees [facility] Code Status: Attempt Resuscitation DIAGNOSES Admission Diagnoses: 1. Right lower quadrant abdominal pain 2. Cecal colitis, nonspecific 3. Tobacco abuse 4. Alcohol abuse 5. Nausea Discharge Diagnoses with Status of Each Condition: 1. Right lower quadrant abdominal pain 2. Cecal colitis, nonspecific 3. Tobacco abuse 4. Alcohol abuse 5. Nausea HPI History of Present Illness: Thin gentleman who lives independently on [facility] the presented to the ER with abdominal pain January 25. Normal white cell count, no fever, and CAT scan with nonspecific findings around the cecum. No appendicitis no free air. Put on empiric antibiotics and sent home. Returned January 31 with no change in abdominal pain if anything was getting worse. This time white cell count was mildly elevated. CAT scan now showed 4 cm inflammation around the cecum. Not clear if this is appendicitis that is not easily visualized, versus tumor and perforation, versus nonspecific colitis. Admitted for IV antibiotics and pain management as well as surgical consult CONSULTS | PROCEDURES Consultations: Shima Song MD/Kym Pop MD Procedures: Attempted colonoscopy. Unsuccessful and only went to 28 cm HOSPITAL COURSE Hospital Course: Patient was started on empiric antibiotic therapy. Is not clear if he has a tumor with mild perforation and inflammation, versus nonspecific colitis of the cecum, versus appendicitis. He responded to empiric antibiotics. A colonoscopy was attempted but could not be done beyond 28 cm because of inflammation in tortuous bowel. White cell count is normal. No fever. Diet has been advanced as tolerated. Ambulating in the room. He is stable for discharge. However he still needs follow-up for this nonspecific mass of the cecum that is inflamed. I carefully explained that he needs to see general surgery in 2 weeks. He will need a repeat CT scan in 2 weeks. We are coordinating with radiology and Dr. Song's office to make that happen. This patient lives in [facility] and it is quite a process for him to get here. He is living at [facility] because is the cheapest way for him to live at this time. [place] [facility] [place]900 a [place] his own property on [facility] that he has power to, and a van. [place] too far in case he acutely worsens. I have also recommended that he get [employer] insurance to be airlifted off [facility] if it ends up being a severe emergency. I would like him to stay on Cipro 250 mg tablets, 2 tablets twice a day for 10 more days. Flagyl 500 mg 3 times a day for 10 days. Florastor [id number]. ALLERGIES Allergies Allergy/AdvReac Type Severity Reaction Status Date / Time No Known Drug Allergies Allergy Verified 02/01/24 20:07 MEDICATIONS Ambulatory Orders Medication Instructions Recorded Confirmed docusate sodium 100 mg capsule 100 mg PO DAILY #15 caps 01/26/24 (Stool Softener) hydrocodone 5 mg-acetaminophen 325 1 ea PO Q6H PRN Pain #15 tabs 01/26/24 mg tablet sildenafil 100 mg tablet 100 mg PO DAILY #5 tabs 01/26/24 acetaminophen 500 mg tablet 500 mg PO Q8H PRN pain (scale 02/04/24 score 1-3) #90 tabs ciprofloxacin HCl 250 mg tablet 500 mg (2 x 250 mg) PO BID colitis 02/04/24 #40 tabs ibuprofen 400 mg tablet 400 mg PO Q6HR PRN Moderate Pain 02/04/24 (Level 4-6) #90 tabs metronidazole 250 mg tablet 500 mg (2 x 250 mg) PO TIDWM 02/04/24 colitis #60 tabs PHYSICAL EXAM AT DISCHARGE General Appearance: positive No acute distress and Other (Thin male with excellent lean body mass. He does a lot of work [place] and does not have a lot of food.) Eyes Bilateral: positive Normal inspection ENT: positive ENT inspection nml Neck: positive Nml inspection Respiratory: positive No respiratory distress and Breath sounds nml Cardiovascular: positive Regular rate & rhythm and No murmur Peripheral Pulses: positive 2+ Abdomen: positive Nml bowel sounds and Tenderness (3 out of 10, right lower quadrant. Most the time it does not hurt anymore he tells me. Hurts mainly with deep palpation.) Extremities: positive Full ROM and No pedal edema Neurologic/Psychiatric: positive Oriented x3, CN's nml (2-12) and Motor nml LABS 02/04/24 05:30 02/04/24 05:30 TIME SPENT Time Spent in Discharge (Minutes): 35 Discharge Plan Discharge Patient Disposition: 01 Home, Self Care Condition: Fair Medically Cleared Date:: 02/04/24 Prescriptions: New metronidazole 250 mg Tablet 500 mg PO TIDWM Qty: 60 0RF ciprofloxacin HCl 250 mg Tablet 500 mg PO BID Qty: 40 0RF acetaminophen 500 mg Tablet 500 mg PO Q8H MDD 3000 mg PRN (Reason: pain (scale score 1-3)) Qty: 90 0RF ibuprofen 400 mg Tablet 400 mg PO Q6HR PRN (Reason: Moderate Pain (Level 4-6)) Qty: 90 0RF Continued hydrocodone-acetaminophen 1 TAB tablet 1 ea PO Q6H PRN (Reason: Pain) Qty: 15 0RF sildenafil 100 MG tablet 100 mg PO DAILY Qty: 5 0RF Rx Instructions: take 1 hour prior to intercourse docusate sodium [Stool Softener] 100 MG capsule 100 mg PO DAILY Qty: 15 0RF Discontinued meloxicam 7.5 MG tablet 7.5 mg PO BID 10 Days Qty: 15 0RF ondansetron 4 MG tablet,disintegrating 4 mg translingual Q6H PRN (Reason: Nausea / Vomiting) Qty: 10 0RF amoxicillin-pot clavulanate 1 TAB tablet 1 ea PO Q12H Qty: 14 0RF Activity Restrictions: Activity as Tolerated Diet: Regular Health Concerns: You came to our emergency room because of abdominal pain for 4 weeks. With this presentation you had a history of being in the emergency room January 25 for the same problem. On 01/25 you told us that you have been having abdominal pain for a couple of weeks in the right lower quadrant. You had nausea and vomiting with it a few times.No diarrhea. When you were examined in the ER, you had a very tender right lower quadrant. You did not have a fever. Your white cell count was elevated to 15.7 thousand (normal is 10,000 or less) and a CAT scan showed normal appendix but you had inflammation of the bowel tube before the appendix and after the appendix. There is no perforation, the bowel was still intact. We presumed that you had a form of colitis that was associated with infection. You do not have a history of prolonged abdominal pain with diarrhea which would lead us to believe that you have inflammatory bowel disease like Crohn's colitis. You were sent home with an antibiotic called Augmentin. You came back to the emergency room January 31 because the abdominal pain had not really gotten better. Once again you did not have a fever. You had normal vital signs. Your white cell count was 10.1 thousand. This time the CAT scan was different. You had a section of inflamed fat seen around the appendix. But not in the appendix. If you you put 3 of your fingers together, that is about 4 cm and that is how big the inflammation was. We consulted a surgeon. The surgeon was unable to advance the video camera endoscopy instrument past 28 cm. Your bowel was too inflamed. The surgeon stopped the procedure because she was afraid that she would perforate your bowel. It really is not clear to us if you have colitis from inflammatory bowel disease or if you have possible tumor in that cecal area. But you have responded to intravenous antibiotics as well as resting your bowel without any food. Your white cell count is 9.1 thousand. You are eating regular food. Pain is minimal. You are now stable to go back home. Assessment: Patient is a thin, alert individual who is oriented person, place, time and situation Plan of Treatment: 1. The surgeon who consulted on you, Dr Song, would like to see you in 2 weeks. We want to keep an eye on that right lower quadrant (called the cecum) and she wants a repeat CAT scan done of that area on the same day she sees you. Again, we are trying to figure out if you have inflammatory bowel disease or a tumor or just simple colitis. The only way were going to be able to make the diagnosis is for you to undergo a possible colonoscopy once all the inflammation is gone down. The colonoscopy will not happen for 4 to 6 weeks after the CAT scan done 2 weeks from now. BETTIE Madison will be putting in the order for the CT, then it will be scheduled by the radiology equipment servicer Corrina Castillo [phone], Ext [phone], and Dr. Song's office will coordinate with Ms Castillo for that. 2. Please take antibiotics by mouth until February 13. The prescriptions are called into [facility] in [place]. 1 will be Ciprofloxacin 250 mg, 2 tablets twice a day. The second 1 will be Flagyl 500 mg 3 times a day. Sometimes antibiotics give you diarrhea because they disrupt the normal balance and your bowel. Take an [id number] probiotic twice a day if that happens. 3. Because you have low so remotely, we are recommending that you stay nearby for the next week just in case. You state you go to be staying in [place] for the next week. But remember, you need to return in 2 weeks to see the surgeon and get the CAT scan. Please make sure you have a valid phone number for the creative art therapist to call you and make that appointment. 4. Part of the failure to heal quickly from this could be alcohol abuse. We are asking you not to drink any alcohol for the next few months. Please take a multivitamin that is a vitamin once a day. That will help supplement any nutritional deficit you may have from alcohol abuse. Print Language: [place] African Patient Instructions: ED Gastroenteritis Bacterial Stand Alone Forms: PCP List Follow-up Care: Kelsey Song MD [Provider Admit Priv/Credential] -"
== END 2024-02-04 15:30 | disposition home or self-care (01) | DRG 392 ==
LOC: ED 19:56 → MS2 02-02 01:35
PROVIDERS: ADMIT Internal Medicine; ATTEND Internal Medicine
DX: F17.200 Nicotine dependence, unspecified, uncomplicated; K63.89 Other specified diseases of intestine; Z59.12 Inadequate housing utilities; D72.829 Elevated white blood cell count, unspecified; F10.10 Alcohol abuse, uncomplicated; A09 Infectious gastroenteritis and colitis, unspecified; D64.9 Anemia, unspecified; K57.30 Diverticulosis of large intestine without perforation or abscess without bleeding